=== PATIENT | female | born 1950 | race Caucasian/White ===

== ENCOUNTER 2022-09-22 14:20 | Emergency (ER) | payer MEDICARE, OTHER ==
[2022-09-22 14:29] VITALS: BP 162/95; PULSE 83; O2SAT 97
--- NOTE | 2022-09-22 14:58 | ERPHSYRPT ---
- History of Present Illness Time Seen by Provider: 09/22/22 14:55 Source: patient Exam Limitations: no limitations Patient Subjective Stated Complaint: Pt states "I was setting up a table and I slipped and put my arm out and hurt my wrist." Triage Nursing Assessment: Pt presented alert and oriented X3, skin pwd. Pt ambulates with an upright steady gait, able to speak in clear full sentences pt in no apaprent respiratory distress, pt right medial wrist swollen and tender Physician History: Pt states "I was setting up a table and I slipped and put my arm out and hurt my wrist." pt in no apparent respiratory distress, pt right medial wrist swollen and tender Occurred: just prior to arrival Method of Injury: fell Quality: sharpness Severity of Pain-Max: mild Severity of Pain-Current: mild Extremities Pain Location: wrist: right Modifying Factors: Improves With: cold therapy Associated Symptoms: none Allergies/Adverse Reactions: No Known Drug Allergies Allergy (Unverified 08/13/12 09:54) Home Medications: Aspirin EC 81 mg [Ecotrin 81 mg] 81 mg PO DAILY 08/13/12 [History] Multivitamin [Multivitamins] 1 each PO DAILY 08/13/12 [History] Simvastatin 40 mg [Zocor 40 mg] 40 mg PO DAILY 08/13/12 [History] Thyroid,Pork [[place] Thyroid] 30 mg PO DAILY 08/13/12 [History] Hx Tetanus, Diphtheria Vaccination/Date Given: No Hx Influenza Vaccination/Date Given: Yes Hx Pneumococcal Vaccination/Date Given: No Immunizations Up to Date: Yes Travel Risk - International Travel Have you traveled outside of the country in past 3 weeks: No - Coronavirus Screening Are you exhibiting any of the following symptoms?: No Close contact with a COVID-19 positive Pt in past 14-21 Days: No - Vaccine Status Have you recieved a Covid-19 vaccination: Yes [employer]: [employer] - Vaccination Dates Date of 2cond Vaccination (if applicable): 2020 - Review of Systems Constitutional: No Fever, No Chills Eyes: No Symptoms Ears, Nose, & Throat: No Symptoms Respiratory: No Cough, No Dyspnea Cardiac: No Chest Pain, No Edema, No Syncope Abdominal/Gastrointestinal: No Abdominal Pain, No Nausea, No Vomiting, No Diarrhea Genitourinary Symptoms: No Dysuria Musculoskeletal: Fall, Joint Pain (right wrist), No Back Pain, No Neck Pain Skin: No Rash Neurological: No Dizziness, No Focal Weakness, No Sensory Changes Psychological: No Symptoms Endocrine: No Symptoms All Other Systems: Reviewed and Negative - Past Medical History Pertinent Past Medical History: Yes Neurological History: No Pertinent History ENT History: No Pertinent History Cardiac History: High Cholesterol Respiratory History: No Pertinent History Endocrine Medical History: Hypothyroidism Musculoskeletal History: No Pertinent History GI Medical History: No Pertinent History History: No Pertinent History Psycho-Social History: No Pertinent History Female Reproductive Disorders: Fibroids - Past Surgical History Past Surgical History: Yes Neuro Surgical History: No Pertinent History Cardiac: No Pertinent History Respiratory: No Pertinent History Gastrointestinal: No Pertinent History Musculoskeletal: No Pertinent History Female Surgical History: Hysterectomy Other Surgical History: tonsils out - Social History Smoking Status: Former smoker Exposure to second hand smoke: Yes Drug Use: none Patient Lives Alone: No - Nursing Vital Signs Nursing Vital Signs: Initial Vital Signs Temperature 97.6 F 09/22/22 14:23 Pulse Rate 83 09/22/22 14:23 Respiratory Rate 18 09/22/22 14:23 Blood Pressure 162/95 09/22/22 14:23 O2 Sat by Pulse Oximetry 97 09/22/22 14:23 Pain Scale Pain Intensity 6 - Physical Exam General Appearance: alert Eyes, Ears, Nose, Throat Exam: moist mucous membranes Neck Exam: non-tender, supple Cardiovascular/Respiratory Exam: chest non-tender, normal breath sounds, regular rate/rhythm, no respiratory distress Abdominal Exam: non-tender, No guarding Back Exam: normal inspection, No vertebral tenderness Shoulder Exam: normal inspection, non-tender Elbow/Forearm Exam: normal inspection, non-tender Wrist Exam: bone tenderness, deformity, limited ROM, pain, soft tissue tenderness, swelling Hand Exam: normal inspection, non-tender Neuro/Tendon Exam: normal sensation, normal motor functions Mental Status Exam: alert, oriented x 3, cooperative Skin Exam: normal color, warm, dry SpO2: 97 Procedures - Splinting Time of Procedure: 15:05 Location of Splint: Right, Wrist Type of Splint: Velcro Splint Splint Applied By: ED Nurse Pre-Proc Neuro Vasc Exam: normal Post-Proc Neuro Vasc Exam: neurovascular intact - Course Nursing assessment & vital signs reviewed: Yes - Radiology Exams Wrist X-ray Interpretation: Reviewed by me (colles fracture) Ordered Tests: Active Orders 24 hr Category Date Time Status FOREARM Stat Exams 09/22/22 14:32 Taken HAND (MINIMUM 3 VIEWS) Stat Exams 09/22/22 14:32 Taken - Progress Progress: improved, pain not gone completely Counseled pt/family regarding: diagnosis, need for follow-up (ortho clinic at [facility] on saturday (walking clinic)), rad results Medical Desision Making - Independent Historian Additional History obtained from: Family - Diagnostic Testing Diagnostic test were ordered, analyzed, and reviewed by me: Yes Radiological Interpretation: Interpreted by me, Reviewed by me - Risk of complications Low Risk: Low risk of morbidity from additional dx testing or treatment - Departure Departure Disposition: Home Clinical Impression: Colles' fracture of right radius Qualifiers: Encounter type: initial encounter Fracture type: closed Qualified Code(s): S52.531A - Colles' fracture of right radius, initial encounter for closed fracture Condition: Stable Critical Care Time: No Referrals: SON ORANTES NP [Primary Care Provider] - [facility]-Ortho M-F [id number] Instructions: Colles' Fracture (DC) Additional Instructions: Please take Tylenol 500 mg with ibuprofen 400 mg together with food up to 4 times a day for pain. Follow-up with orthopedic clinic on Saturday morning you can walk-in to the clinic without appointment. Follow-up with Dr. Keesha Orantes in 2 to 3 days. Discharge/Care Plan DAMARI PUENTES was seen on 09/22/22 in the Emergency Room. The patient was counseled regarding Diagnosis,Lab results, Imaging studies, need for follow up and when to return to the Emergency Room. Prescriptions given: Discharge Note I have spoken with the patient and/or caregivers. I have explained the patient's condition, diagnosis and treatment plan based on the information available to me at this time. I have answered the patient's and/or caregiver's questions and addressed any concerns. The patient and/or caregivers have as good understanding of the patient's diagnosis, condition and treatment plan as can be expected at this point. The vital signs have been stable. The patient's condition is stable and appropriate for discharge from the emergency department. The patient will pursue further outpatient evaluation with the primary care physician or other designated or consulting physician as outlined in the discharge instructions. The patient and/or caregivers are agreeable to this plan of care and follow-up instructions have been explained in detail. The patient and/or caregivers have received these instruction. The patient/and or caregivers are aware that any significant change in condition or worsening of symptoms should prompt an immediate return to this or the closest emergency department or call 911. DAMARI PUENTES was seen on 09/22/22 n the Emergency Room. At that time you were treated for an emergent condition, during your visit Laboratory, Radiology and/or other procedures may have been ordered. It is very important that you follow-up with your Primary Care Physician SON ORANTES within the next 24-48 hours to review your Emergency Room visit and the final results of testing that was ordered. Some test results such as Urine Cultures, Blood Cultures, and other cultures if ordered will not be finalized for 24-48 hours. If you do not have a Primary Care Provider please call the medical records department at [phone] to obtain a copy of your results or you may sign into our patient portal to obtain these results by visiting us @ [email or web address] and completing the following steps: 1. Click on the Patient Portal link 2. Click the Patient Self Enrollment Link to complete the enrollment form and entering your 3. Once the enrollment form is completed you will receive an email with a temporary ID and password at the email address you provided. 4. Next choose a user name and password. Your user name must be at least 4 characters long and your password must be at least 4 characters long. 5. Choose a security question from the list and provide your answer to the question. If you already have signed into the Health Portal you may access your Health Care Information 07/01 by the following steps: 1. Login to our website @ [email or web address] 2. Enter your original user name and password. FAQS The [facility] Health Portal is an online tool that contains your Lab Results, Radiology Reports, Visit History, Discharge Instructions and Health Summary Lab and Radiology Results will not be available for 72 hours on the portal. The Portal is a secure site, passwords are encryted and URLs are re-written so they cannot be copied and pasted. You and authorized family members are the only ones who can access your Portal. Also there is a timeout feature that protects your information if you leave the Portal page open. If you have technical difficulty please use the Contact Us link on the page this will allow you to submit any questions you have regarding the Portal or you may contact the Medical Record Department at [phone] ext [phone].
--- NOTE | 2022-09-22 20:20 | XRAY ---
Indication: Pain following fall. Comparison: None 3 view right hand demonstrates osteopenia, nondisplaced comminuted fracture distal radius with intra-articular extension, moderate 1st metacarpal multangular scaphoid articulation, and mild degenerative changes all IP joints. No other bony, articular, or soft tissue abnormalities.. No other bony, articular, or soft tissue abnormalities.
--- NOTE | 2022-09-22 20:20 | XRAY ---
Indication: Pain following fall. Comparison: None 2 view right forearm demonstrates osteopenia and nondisplaced comminuted fracture distal radius with intra-articular extension. No other bony, articular, or soft tissue abnormalities.
== END 2022-09-22 15:10 | disposition home or self-care (01) ==
LOC: ED 14:20
DX: S52.531A Colles' fracture of right radius, initial encounter for closed fracture (principal); W01.0XXA Fall on same level from slipping, tripping and stumbling without subsequent striking against object, initial encounter; E78.5 Hyperlipidemia, unspecified; Z79.899 Other long term (current) drug therapy
CPT/HCPCS: 73090; 73130; 99282; A4570

== ENCOUNTER 2024-09-16 14:37 | Emergency (ER) | payer MEDICARE, OTHER ==
[2024-09-16 14:53] VITALS: TEMP 98
[2024-09-16 16:00] LABS: Absolute Neutrophil Ct (ANC) 4.86 x10^3/uL (1.56-6.13); BASOPHIL % 0.7 % (0.1-1.2); Basophil (Absolute #) 0.05 x10^3/uL (0.01-0.08); Eosinophil (Absolute #) 0.15 x10^3/uL (0.04-0.36); Hematocrit 40.7 % (34.1-44.9); Hemoglobin 13.5 g/dL (11.2-15.7); IMMATURE GRAN # 0.02 x10^3u/L (0.001-0.031); IMMATURE GRAN % 0.3 % (0.001-0.429); Lymphocyte (Absolute #) 1.63 x10^3/uL (1.18-3.74); Lymphocytes % 22.2 % (19.3-51.7); Mean Cell Volume 91.3 fL (79.4-94.8); Mean Corpuscular Hemoglobin 30.3 pg (25.6-32.2); Mean Corpuscular Hgb Concent. 33.2 g/dL (32.2-35.5); Mean Platelet Volume 10.4 fL (9.4-12.3); Monocyte (Absolute #) 0.63 x10^3/uL (0.24-0.86); Monocytes % 8.6 % (4.7-12.5); Neutrophil % 66.2 % (34.0-71.1); Platelet Count 256 x10^3/uL (182-369); Red Blood Count 4.46 x10^6/uL (3.93-5.22); Red Cell Distribution Width 12.5 % (11.7-14.4); White Blood Count 7.3 x10^3/uL (3.98-10.04)
[2024-09-16 16:17] LABS: ALBUMIN 4.8 g/dL (3.5-5.0); ANION GAP 17.5 MEQ/L (5-15); BILIRUBIN,TOTAL 0.6 mg/dL (0.2-1.3); Calcium 9.8 mg/dL (8.4-10.2); Creatinine 1 0.95 mg/dL (0.52-1.04); EST GLOMERULAR FILTRATION RATE 63.7 ML/MIN; Potassium 4.5 mmol/L (3.5-5.1); Total Protein 7.7 g/dL (6.3-8.2)
[2024-09-16 16:21] VITALS: RESP 18
--- NOTE | 2024-09-16 16:38 | XRAY ---
Indication: Left lower leg weakness. Foot drop. Multiple contiguous axial images obtained through the head without contrast. Comparison: None Age-appropriate global atrophy and minimal periventricular degenerative micro-ischemia bilaterally. No acute intracranial hemorrhage, abnormal extra-axial fluid collection, or mass effect. Fourth ventricle is midline without hydrocephalus. Morris-white matter differentiation preserved. Bony calvarium intact. Visualized paranasal sinuses and mastoid air cells are clear. Impression: Nonacute senile brain.
--- NOTE | 2024-09-16 16:48 | XRAY ---
Indication: Left lower leg weakness and foot drop 6 days. Multiple contiguous axial images obtained through the lumbar spine. Sagittal and coronal reformatted images obtained. Comparison: None Axial images demonstrates moderate annular disc osteophyte complex at L2-L3 level with subsequent spinal canal narrowing and bilateral foraminal stenosis. Also left paracentral subligamentous disc herniation with partially calcified disc material occupying left epidural space. Lesser broad-based disc bulge at L1-L2 and L3-L4 levels. Sagittal and coronal reformatted images demonstrates normal lumbar lordosis with minimal dextroscoliosis centered at L3. L2-L3 disc space loss. No acute compression fracture subluxation. Visualized noncontrasted soft tissues demonstrates incompletely visualized sigmoid diverticulosis. Impression: 1. L2-L3 left paracentral subligamentous disc herniation better evaluated with MRI. 2. Mild/moderate L1-L4 degenerative disc disease. 3. Incidental sigmoid diverticulosis.
[2024-09-16 18:15] LABS: Appearance Clear (Clear); Bacteria None Seen /HPF (None Seen); Bilirubin Negative (Negative); Blood Negative (Negative); Epithelial Cells None Seen /HPF (None Seen); Glucose, Urine Negative (Negative); Hyaline Casts NONE SEEN /LPF (0-2); Ketones Negative (Negative); Leukocyte Esterase Trace (Negative); Nitrite Negative (Negative); Protein,Urine Dip Negative (Negative); RBC 0-2 /HPF (0-5); Urobilinogen 0.2 mg/dL (0.2)
[2024-09-16 18:35] VITALS: O2SAT 95
--- NOTE | 2024-09-16 19:00 | ERPHSYRPT ---
- History of Present Illness Time Seen by Provider: 09/16/24 14:48 Source: patient Exam Limitations: no limitations Patient Subjective Stated Complaint: .PT HERE FOR NUMBNESS AND WEAKNESS TO LEFT LOWER LEG FOR 6 DAYS NOW,SHE HAD A US AND STERRIOD SHOT ON SATURDAY,AND STATES IS WORSE. DENIES INURY, NO DIFFICULTY WITH BOWEL OR BLADDER Triage Nursing Assessment: PT ALERT, ARRIVED PER WC, RESP EASY, SKIN W/D/P NO SSWELLING NOTED, STRONG PEDAL PULSE, HAS GOOD SENSATION TO LEFT LEG UNABLE TO LIFT LEG MORE THAN 2-3 INCHES OFF BED, Physician History: 74 years old female with history of hypothyroidism, hyperlipidemia presented in the ER with 6 days history of left lower leg below knee numbness, heaviness, difficulty ambulation. Patient reports it started when she was on vacation, called her primary and has ultrasound/steroid shot outpatient with no significant relief and is getting worse since yesterday where she is falling. Denies any fall or trauma. Denies any knee pain. No recent fever or chills reported. Denies any history of back pain. No loss of bowel or bladder control. Denies any headache, feeling dizzy or lightheaded. No chest pain palpitations or shortness of breath. No history of stroke or TIAs. Allergies/Adverse Reactions: No Known Drug Allergies Allergy (Verified 09/16/24 14:46) Home Medications: Aspirin EC 81 mg [Ecotrin 81 mg] 81 mg PO DAILY 08/13/12 [History] Multivitamin [Multivitamins] 1 each PO DAILY 08/13/12 [History] Simvastatin 40 mg [Zocor 40 mg] 40 mg PO DAILY 08/13/12 [History] Thyroid,Pork [Guthrie Thyroid] 50 mg PO DAILY 08/13/12 [History] Alendronate Sodium 70 mg [Fosamax 70 MG] 70 mg PO Q7D@0600 09/16/24 [History] Fenofibrate Nanocrystallized [Fenofibrate] 48 mg PO DAILY 09/16/24 [History] Hx Tetanus, Diphtheria Vaccination/Date Given: No Hx Influenza Vaccination/Date Given: Yes Hx Pneumococcal Vaccination/Date Given: No Immunizations Up to Date: Yes Travel Risk - International Travel Have you traveled outside of the country in past 3 weeks: No - Emerging Infectious Disease Are you exhibiting symptoms associated with any current EIDs: No - Review of Systems Constitutional: No Symptoms Eyes: No Symptoms Ears, Nose, & Throat: No Symptoms Respiratory: No Symptoms Cardiac: No Symptoms Abdominal/Gastrointestinal: No Symptoms Genitourinary Symptoms: No Symptoms Musculoskeletal: No Symptoms Skin: No Symptoms Neurological: Sensory Changes Psychological: No Symptoms Endocrine: No Symptoms Hematologic/Lymphatic: No Symptoms - Past Medical History Pertinent Past Medical History: Yes Neurological History: No Pertinent History ENT History: No Pertinent History Cardiac History: High Cholesterol Respiratory History: No Pertinent History Endocrine Medical History: Hypothyroidism Musculoskeletal History: No Pertinent History GI Medical History: No Pertinent History History: No Pertinent History Psycho-Social History: No Pertinent History Female Reproductive Disorders: Fibroids - Past Surgical History Past Surgical History: Yes Neuro Surgical History: No Pertinent History Cardiac: No Pertinent History Respiratory: No Pertinent History Gastrointestinal: No Pertinent History Musculoskeletal: No Pertinent History, Orthopedic Surgery Female Surgical History: Hysterectomy Other Surgical History: tonsils out,KNEE WRIST - Social History Smoking Status: Never smoker Exposure to second hand smoke: Yes Drug Use: none - Social Determinants of Health Will the patient participate in the screening: Declined to provide - Nursing Vital Signs Nursing Vital Signs: Initial Vital Signs Temperature 98.0 F 09/16/24 14:53 Pulse Rate 64 09/16/24 14:53 Respiratory Rate 16 09/16/24 14:53 Blood Pressure 171/80 09/16/24 14:53 O2 Sat by Pulse Oximetry 97 09/16/24 14:53 Pain Scale Pain Intensity 0 - Physical Exam General Appearance: no apparent distress, alert Eye Exam: PERRL/EOMI Ears, Nose, Throat Exam: normal ENT inspection Neck Exam: normal inspection, non-tender, supple, full range of motion Respiratory Exam: normal breath sounds, lungs clear Cardiovascular Exam: regular rate/rhythm, normal heart sounds Gastrointestinal/Abdomen Exam: soft, normal bowel sounds, No tenderness Back Exam: normal inspection, normal range of motion Extremity Exam: normal inspection, normal range of motion Neurologic Exam: alert, oriented x 3, cooperative, 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, normal mood/affect, motor deficits (Left lower leg/foot with difficulty dorsiflexion, eversion/inversion), motor weakness, other (Plantars downgoing on the right and upgoing on the left), No nml cerebellar function, No nml station & gait, No sensation nml (Decreased sensations of fine touch left lower leg and foot) SpO2 Interpretation: normal SpO2: 95 O2 Delivery: Room Air Ordered Tests: Active Orders 24 hr Category Date Time Status EKG-ER Only STAT Care 09/16/24 15:02 Completed IV Insertion STAT Care 09/16/24 15:02 Completed HEAD WITHOUT CONTRAST [CT] Stat Exams 09/16/24 15:02 Completed LUMBAR SPINE W/O [CT] Stat Exams 09/16/24 15:01 Completed CBC W DIFF Stat Lab 09/16/24 15:55 Completed CMP Stat Lab 09/16/24 15:55 Completed TROPONIN Q4H Lab 09/16/24 15:55 Completed UA W/RFX UR CULTURE Stat Lab 09/16/24 17:15 Completed Medication Summary Discontinued Medications Generic Name Dose Route Start Last Admin Trade Name Freq PRN Reason Stop Dose Admin Dexamethasone Sodium Phosphate 10 mg 09/16/24 19:00 09/16/24 19:05 Dexamethasone Sod Phosphate 10 Mg/Ml IV 09/16/24 19:01 10 mg STAT ONE Administration Dexamethasone Sodium Phosphate Confirm 09/16/24 19:03 Dexamethasone Sod Phosphate 10 Mg/Ml Administered 09/16/24 19:04 Dose 10 mg .ROUTE .STK-MED ONE Lab/Rad Data: Laboratory Result Diagrams 09/16/24 15:55 09/16/24 15:55 Laboratory Results 09/16/24 09/16/24 09/16/24 Range/Units 17:15 15:55 15:55 WBC (3.98-10.04) x10^3/uL RBC (3.93-5.22) x10^6/uL Hgb (11.2-15.7) g/dL Hct (34.1-44.9) % MCV (79.4-94.8) fL MCH (25.6-32.2) pg MCHC (32.2-35.5) g/dL RDW (11.7-14.4) % Plt Count (182-369) x10^3/uL MPV (9.4-12.3) fL Gran % (34.0-71.1) % Immature Gran % (Auto) (0.001-0.429) % Nucleat RBC Rel Count (0.00-0.2) % Eos # (Auto) (0.04-0.36) x10^3/uL Immature Gran # (Auto) (0.001-0.031) x10^3u/L Absolute Lymphs (auto) (1.18-3.74) x10^3/uL Absolute Monos (auto) (0.24-0.86) x10^3/uL Absolute Nucleated RBC (0.00-0.012) x10^3u/L Lymphocytes % (19.3-51.7) % Monocytes % (4.7-12.5) % Eosinophils % (0.7-5.8) % Basophils % (0.1-1.2) % Absolute Granulocytes (1.56-6.13) x10^3/uL Basophils # (0.01-0.08) x10^3/uL Sodium 143 (135-145) mmol/L Potassium 4.5 (3.5-5.1) mmol/L Chloride 107 (98-107) mmol/L Carbon Dioxide 23 (22-30) mmol/L Anion Gap 17.5 H (5-15) MEQ/L BUN 26 H (7-17) mg/dL Creatinine 0.95 (0.52-1.04) mg/dL Estimated GFR 63.7 ML/MIN Glucose 103 (74-106) mg/dL Calcium 9.8 (8.4-10.2) mg/dL Total Bilirubin 0.60 (0.2-1.3) mg/dL AST 35 (14-36) U/L ALT 26 (0-35) U/L Alkaline Phosphatase 63 (38-126) U/L Troponin I < 0.012 (0.000-0.033) ng/mL Serum Total Protein 7.7 (6.3-8.2) g/dL Albumin 4.8 (3.5-5.0) g/dL Urine Color Yellow (Yellow) Urine Appearance Clear (Clear) Urine pH 6.0 (4.6-8.0) Ur Specific [place] 1.020 (1.005-1.030) Urine Protein Negative (Negative) Urine Glucose (UA) Negative (Negative) mg/dL Urine Ketones Negative (Negative) Urine Blood Negative (Negative) Urine Nitrite Negative (Negative) Urine Bilirubin Negative (Negative) Urine Urobilinogen 0.2 (0.2) mg/dL Ur Leukocyte Esterase Trace A (Negative) U Hyaline Cast (Auto) NONE SEEN (0-2) /LPF Urine Microscopic RBC 0-2 (0-5) /HPF Urine Microscopic WBC 3-5 (0-5) /HPF Ur Epithelial Cells None Seen (None Seen) /HPF Urine Bacteria None Seen (None Seen) /HPF Urine Culture Reflexed NO (NO) 09/16/24 Range/Units 15:55 WBC 7.3 (3.98-10.04) x10^3/uL RBC 4.46 (3.93-5.22) x10^6/uL Hgb 13.5 (11.2-15.7) g/dL Hct 40.7 (34.1-44.9) % MCV 91.3 (79.4-94.8) fL MCH 30.3 (25.6-32.2) pg MCHC 33.2 (32.2-35.5) g/dL RDW 12.5 (11.7-14.4) % Plt Count 256 (182-369) x10^3/uL MPV 10.4 (9.4-12.3) fL Gran % 66.2 (34.0-71.1) % Immature Gran % (Auto) 0.3 (0.001-0.429) % Nucleat RBC Rel Count 0.0 (0.00-0.2) % Eos # (Auto) 0.15 (0.04-0.36) x10^3/uL Immature Gran # (Auto) 0.02 (0.001-0.031) x10^3u/L Absolute Lymphs (auto) 1.63 (1.18-3.74) x10^3/uL Absolute Monos (auto) 0.63 (0.24-0.86) x10^3/uL Absolute Nucleated RBC 0.00 (0.00-0.012) x10^3u/L Lymphocytes % 22.2 (19.3-51.7) % Monocytes % 8.6 (4.7-12.5) % Eosinophils % 2.0 (0.7-5.8) % Basophils % 0.7 (0.1-1.2) % Absolute Granulocytes 4.86 (1.56-6.13) x10^3/uL Basophils # 0.05 (0.01-0.08) x10^3/uL Sodium (135-145) mmol/L Potassium (3.5-5.1) mmol/L Chloride (98-107) mmol/L Carbon Dioxide (22-30) mmol/L Anion Gap (5-15) MEQ/L BUN (7-17) mg/dL Creatinine (0.52-1.04) mg/dL Estimated GFR ML/MIN Glucose (74-106) mg/dL Calcium (8.4-10.2) mg/dL Total Bilirubin (0.2-1.3) mg/dL AST (14-36) U/L ALT (0-35) U/L Alkaline Phosphatase (38-126) U/L Troponin I (0.000-0.033) ng/mL Serum Total Protein (6.3-8.2) g/dL Albumin (3.5-5.0) g/dL Urine Color (Yellow) Urine Appearance (Clear) Urine pH (4.6-8.0) Ur Specific [place] (1.005-1.030) Urine Protein (Negative) Urine Glucose (UA) (Negative) mg/dL Urine Ketones (Negative) Urine Blood (Negative) Urine Nitrite (Negative) Urine Bilirubin (Negative) Urine Urobilinogen (0.2) mg/dL Ur Leukocyte Esterase (Negative) U Hyaline Cast (Auto) (0-2) /LPF Urine Microscopic RBC (0-5) /HPF Urine Microscopic WBC (0-5) /HPF Ur Epithelial Cells (None Seen) /HPF Urine Bacteria (None Seen) /HPF Urine Culture Reflexed (NO) - Progress Progress: unchanged Progress Note: 09/16/24 18:55 74 years old fairly healthy female is evaluated in the ER for left lower leg and foot numbness and weakness for the last 6 days with progressive worsening. No swelling redness, fall or trauma. No history of back pain. No cauda equina symptoms, normal rectal tone. Obtain CT head which is negative, CT lumbar spine showed L2-L3 left sided disc herniation and also generalized degenerative changes and other lumbar spines. Baseline lab work fairly unremarkable with normal white count and unremarkable c hemistries. I have called [facility], discussed with Dr. Ham neurosurgery on-call, reviewed history, workup, recommended obtaining MRI for further evaluation. Since patient's symptoms been going on for the last 6 days, did not recommend transfer and agreed that patient can have an outpatient MRI done within next couple of days and outpatient follow-up with neurosurgical spine clinic. Also recommended steroids. I have shared the results of workup with patient and family and recommendations of neurosurgery with outpatient follow-up and obtaining MRI which they seem understanding. Patient is advised not to ambulate but by using cane/walker to avoid a fall. Discussed signs symptoms of worsening needing return to ER which she seems understanding. Stable for discharge. Discussed with Dr.: Other (Dr. Lawton neurosurgery [facility] [id number]) Counseled pt/family regarding: lab results, diagnosis, need for follow-up, rad results Medical Desision Making - Independent Historian Additional History obtained from: Spouse - Discussion of managment Care discussed with:: specialist ( neurosurgery [facility]) Reviewed:: Test results Agreed on:: Treatment plan, need for follow-up Will see patient: In office - Diagnostic Testing Diagnostic test were ordered, analyzed, and reviewed by me: Yes Radiological Interpretation: Reviewed by me - Risk of complications The pt has a mod risk of morbidity or mortality based on: Need for prescription drug management - Departure Departure Disposition: Home Clinical Impression: Foot drop, left, Lumbar disc herniation Condition: Stable Critical Care Time: No Referrals: SON CARRION NP [Primary Care Provider] - Follow up with PCP 1 day ELVIS HUGHES MD [NON-STAFF PHY W/O PRIVILEGES] - Follow up/PCP as directed (Call for appointment for reevaluation) Instructions: Paresthesia (DC), Foot Drop Additional Instructions: Follow-up with your primary care for reevaluation and you need MRI of your lumbar spine for further evaluation. Use cane/walker for ambulation to avoid a fall. Use Medrol Dosepak and take Tylenol/ibuprofen as needed. Return to ER for worsening of weakness or if having loss of bowel or bladder control/saddle anesthesia etc. Prescriptions: Methylprednisolone Packet [Medrol Dosepack] 4 mg PO UD #1 packet
[2024-09-16] MEDS ORDERED: DECADRON 10MG INJ. ONE (19:03)
[2024-09-16] MEDS: DECADRON 10MG INJ. IV ONE (19:05)
[2024-09-16 19:13] VITALS: BP 180/90; PULSE 79
== END 2024-09-16 19:17 | disposition home or self-care (01) ==
LOC: ED 14:37
DX: M51.26 Other intervertebral disc displacement, lumbar region (principal); M21.372 Foot drop, left foot; E78.5 Hyperlipidemia, unspecified; R20.1 Hypoesthesia of skin; Z79.52 Long term (current) use of systemic steroids; Z79.899 Other long term (current) drug therapy
CPT/HCPCS: 36415; 70450; 72131; 80053; 81001; 84484; 85025; 93005; 96374; 99284; 99285; J1100